=== PATIENT | male | born 1975 | race Two or more races ===

== ENCOUNTER 2023-06-06 14:25 | Emergency (ER) | payer BC ==
[~2023-06-06] VITALS: Ht 172.7 cm; Wt 90.7 kg
[2023-06-06 14:25] VITALS: BP_SYST 181; BP_SYST 189; BP_DIAS 92; PULSE 82; RESP 16; TEMP 98.4; O2SAT 100
[2023-06-06 15:11] LABS: BASOPHIL # 0.1 10^3/uL (0.0-0.1); BASOPHIL % 0.4 % (0.0-0.2); EOSINOPHIL % 0.3 % (0.0-5.0); HEMATOCRIT(ML) 41.6 % (37.0-53.0); HEMOGLOBIN 14.9 g/dL (13.9-16.3); IG % 0.2 % (0.00-0.50); LYMPHOCYTES # 0.9 10^3/uL1 (1.0-4.8); LYMPHOCYTES % 7.5 % (24.0-44.0); MEAN CORP HGB CONCENTRATION 35.8 g/dL (33-36.5); MEAN CORP VOLUME 83.7 fL (78-100); MONOCYTES # 0.6 10^3/uL (0.3-0.8); NEUTROPHIL # 10.4 10^3/uL (1.8-7.7); NEUTROPHILS % 86.6 % (41.0-85.0); RED BLOOD CELL 4.97 10^6/uL (4.50-5.90); RED CELL DISTRIBUTION WIDTH 11.8 % (11.5-14.5)
[2023-06-06 15:27] LABS: ALBUMIN/GLOBULIN RATIO 1.29; CALCIUM 8.7 mg/dL (8.4-10.5); CARBON DIOXIDE 26.7 mmol/L (20.0-32); CREATININE SERUM 1.25 mg/dL (0.59-1.40); EST GFR, NON-AA 62.5 (>/=60); POTASSIUM 3.7 mmol/L (3.6-5.2)
[2023-06-06 15:29] VITALS: BP 148/80; PULSE 79; RESP 16; TEMP 98.4; O2SAT 100
[2023-06-06 15:57] VITALS: BP 143/78; PULSE 71; RESP 16; TEMP 98.4; O2SAT 100
== END 2023-06-06 16:05 | disposition home or self-care (01) ==
LOC: ER 14:25
DX: G43.909 Migraine, unspecified, not intractable, without status migrainosus (principal); Z88.0 Allergy status to penicillin
CPT/HCPCS: 36415; 70450; 80053; 85025; 93005; 99284